=== PATIENT | male | born 1950 ===

== ENCOUNTER 2021-01-05 17:18 | Emergency (ER) | payer MEDICAID, MEDICARE ==
[~2021-01-05] VITALS: Ht 162.6 cm; Wt 50.0 kg
--- NOTE | 2021-01-05 17:34 | NUR ---
NO ANSWER FROM LOBBY
[2021-01-05 17:51] VITALS: BP 116/72
[2021-01-05 18:23] LABS: MEAN CORPUSCULAR HEMOGLOBIN 29.9 pg (27.5-34.5); MEAN CORPUSCULAR HGB CONC 32.1 g/dL (33.2-36.2); MEAN PLATELET VOLUME 6.4 fL (7.4-10.4); PLATELET COUNT 456 x10^3/uL (130-400); RED BLOOD COUNT 2.68 x10^6/uL (4.38-5.82); RED CELL DISTRIBUTION WIDTH 24.6 % (9.4-14.8)
[2021-01-05 18:26] LABS: ALANINE AMINOTRANSFERASE 18 U/L (12-78); ALBUMIN 3.2 g/dL (3.4-5.0); ANION GAP 13 mmol/L (5-15); CALCIUM 8.1 mg/dL (8.5-10.1); CHLORIDE 101 mmol/L (98-107); CREATININE 0.79 mg/dL (0.7-1.3)
[2021-01-05 18:29] LABS: ALKALINE PHOSPHATASE 89 U/L (45-117); BILIRUBIN,TOTAL 0.5 mg/dL (0.2-1.0); TOTAL PROTEIN 7.1 g/dL (6.4-8.2)
[2021-01-05 18:37] LABS: MD YES
[2021-01-05 19:07] LABS: BAND#(MANUAL) 0.12 x10^3/uL; BANDS%(MANUAL) 1 % (0-7); EOS#(MANUAL) 1.79 x10^3/uL (0.0-0.4); EOS% (MANUAL) 15 % (1-7); LYMPH#(MANUAL) 2.86 x10^3/uL (1-3.4); LYMPHS% (MANUAL) 24 % (22-44); MONOS#(MANUAL) 0.24 x10^3/uL (0.3-2.7); MONOS% (MANUAL) 2 % (2-9); SEGS% (MANUAL) 58 % (42-75)
[2021-01-05 19:08] LABS: ANISOCYTOSIS 1+; HYPOCHROMIA 1+; POLYCHROMASIA 1+
[2021-01-05 19:09] LABS: OVALOCYTES 1+
[2021-01-05 19:10] LABS: <PLATELET ESTIMATE> INCREASED; SMALL PLATELETS 1+
== END 2021-01-05 22:00 | disposition home or self-care (01) ==
LOC: ED 20:37
DX: D50.0 Iron deficiency anemia secondary to blood loss (chronic) (principal); Z21 Asymptomatic human immunodeficiency virus [HIV] infection status; Z85.01 Personal history of malignant neoplasm of esophagus
CPT/HCPCS: 36415; 80053; 85025; 99283

== ENCOUNTER 2021-02-08 13:01 | Emergency (ER) | payer MEDICARE ==
[~2021-02-08] VITALS: Ht 162.6 cm; Wt 53.9 kg
[2021-02-08 13:49] LABS: MEAN CORPUSCULAR HEMOGLOBIN 31.3 pg (27.5-34.5); MEAN CORPUSCULAR HGB CONC 32.8 g/dL (33.2-36.2); MEAN PLATELET VOLUME 6.6 fL (7.4-10.4); PLATELET COUNT 318 x10^3/uL (130-400); RED BLOOD COUNT 3.28 x10^6/uL (4.38-5.82)
[2021-02-08 13:56] LABS: ALBUMIN 3.1 g/dL (3.4-5.0); ANION GAP 7 mmol/L (5-15); CALCIUM 8.6 mg/dL (8.5-10.1); CHLORIDE 106 mmol/L (98-107)
[2021-02-08 14:00] LABS: ALANINE AMINOTRANSFERASE 27 U/L (12-78); ALKALINE PHOSPHATASE 86 U/L (45-117); BILIRUBIN,TOTAL 0.3 mg/dL (0.2-1.0); CREATININE 0.82 mg/dL (0.7-1.3); TOTAL PROTEIN 7.2 g/dL (6.4-8.2)
[2021-02-08 14:07] LABS: INTERNATIONAL NORMALIZED RATIO 0.96 (0.93-1.1); PROTHROMBIN TIME 10.3 Seconds (9.6-11.5)
[2021-02-08 14:27] LABS: <PLATELET ESTIMATE> ADEQUATE; <PLT MORPHOLOGY> NORMAL PLT MORPH; EOS#(MANUAL) 0.42 x10^3/uL (0.0-0.4); EOS% (MANUAL) 4 % (1-7); LYMPH#(MANUAL) 2.63 x10^3/uL (1-3.4); LYMPHS% (MANUAL) 25 % (22-44); MONOS#(MANUAL) 0.63 x10^3/uL (0.3-2.7); MONOS% (MANUAL) 6 % (2-9); SEG#(MANUAL) 6.83 x10^3/uL (1.8-6.8); SEGS% (MANUAL) 65 % (42-75)
[2021-02-08 14:28] LABS: ANISOCYTOSIS 1+; HYPOCHROMIA 1+; MICROCYTOSIS 1+
--- NOTE | 2021-02-08 16:07 | NUR ---
This silk screen printer machine attempted to call this patient back for second set of vitals at this time. Not in lobby x1.
--- NOTE | 2021-02-08 18:20 | NUR ---
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
[2021-02-08 19:04] VITALS: BP 114/66
== END 2021-02-08 19:07 | disposition home or self-care (01) ==
LOC: ED 13:30
DX: D64.9 Anemia, unspecified (principal); C15.9 Malignant neoplasm of esophagus, unspecified; Z21 Asymptomatic human immunodeficiency virus [HIV] infection status
CPT/HCPCS: 36415; 80053; 85025; 85610; 85730; 86850; 86900; 99283

== ENCOUNTER → 2021-03-30 | Outpatient (CLI) | payer MEDICARE | END | disposition home or self-care (01) | LOC: PETCFH 13:15 | PROVIDERS: ATTEND Family Medicine | DX: C78.7 Secondary malignant neoplasm of liver and intrahepatic bile duct (principal); C15.9 Malignant neoplasm of esophagus, unspecified; K22.8 Other specified diseases of esophagus; R59.1 Generalized enlarged lymph nodes | CPT/HCPCS: 78815; A9552 ==

== ENCOUNTER 2021-05-10 14:40 | Emergency (ER) | payer MEDICARE ==
[~2021-05-10] VITALS: Ht 162.6 cm; Wt 49.0 kg
[2021-05-10 20:54] VITALS: BP 119/72
== END 2021-05-10 20:55 | disposition home or self-care (01) ==
LOC: ED 20:46
DX: C78.89 Secondary malignant neoplasm of other digestive organs (principal); R06.02 Shortness of breath; R42 Dizziness and giddiness; Z20.822 Contact with and (suspected) exposure to COVID-19
CPT/HCPCS: 36415; 71045; 80053; 84484; 85025; 93005; 96360; 99285; J7030; U0003; U0005